=== PATIENT | female | born 1945 | race Caucasian/White ===

== ENCOUNTER → 2016-08-01 | Outpatient (CLI) | payer MEDICARE, OTHER ==
[~2016-08-01] MED LIST: ASPIR-LOW81 MG PO; CALCIUM + D 6001 TAB PO; CATAPRES PATCH; CECLOR 250MG250 MG PO; DIOVAN; GEMCOR600 MG PO; HYZAAR 25 MG-101 TAB PO; KLONOPIN 0.5MG0.5 MG PO; LEXAPRO; LOPRESSOR 550 MG/TAB PO; LORTAB 7.5/5001 TAB; MACROBID 1100 MG/CAP PO; PREGABALIN; TOPROL XL100 MG PO; UTI CRANBERRY480 MG PO; VITAMIN C500 MG PO
== END ==
LOC: MC.RAD 13:04
DX: Z12.31 Encounter for screening mammogram for malignant neoplasm of breast (principal)

== ENCOUNTER 2017-03-01 17:59 | Emergency (ER) | payer MEDICARE, OTHER ==
[~2017-03-01] VITALS: Ht 165.1 cm; Wt 75.5 kg
[2017-03-01 18:06] VITALS: TEMP 98.4
[2017-03-01 19:17] LABS: BASO % 0.4 % (0.0-2.0); EOS # 0.1 (0.0-0.7); EOS % 1.2 % (0-4.0); GRAN # 5.1 (1.4-6.5); GRAN % 62.7 % (42.2-75.2); HEMOGLOBIN 13.3 g/dl (12.5-16.0); LYMPH # 2.5 (1.2-3.4); LYMPH % 31.2 % (20.0-51.0); MEAN CELL VOLUME 92 fl (80.0-100.0); MEAN CORPUSCULAR HEMOGLOBIN 31 pg (27.0-31.0); MEAN CORPUSCULAR HGB CONC 33 g/dl (33.0-37.0); MEAN PLATELET VOLUME 10.8 fl (7.4-10.4); MONO # 0.4 (0.1-0.6); MONO % 4.3 % (1.7-9.3); PLATELET COUNT 177 K/mm3 (130-400); RED BLOOD COUNT 4.34 M/mm3 (4.10-5.30); WHITE BLOOD COUNT 8.1 K/mm3 (4.8-10.8)
[2017-03-01 19:25] LABS: ADJUSTED CALCIUM 9.1 mg/dL (8.4-10.2); ALANINE AMINOTRANSFERASE 34 U/L (9-52); ALBUMIN 4.8 gm/dL (3.5-5.0); ALKALINE PHOSPHATASE 96 U/L (50-136); ANION GAP 12 mmol/L (7-16); BILIRUBIN,TOTAL 0.6 mg/dL (0.0-1.0); BLOOD UREA NITROGEN 28 mg/dL (7-17); CALCIUM 9.7 mg/dL (8.4-10.2); CARBON DIOXIDE 23 mmol/L (22-30); CHLORIDE 107 mmol/L (98-107); CREATININE, serum 0.82 mg/dL (0.52-1.25); GLUCOSE 103 mg/dL (74-106); POTASSIUM 3.6 mmol/L (3.4-5.0); SODIUM 142 mmol/L (137-145); TOTAL PROTEIN 7.7 gm/dL (6.4-8.2)
[2017-03-01 19:36] LABS: TROPONIN-I < 0.012 ng/mL (0.000-0.034)
[2017-03-01 20:29] VITALS: BP 146/76; PULSE 64
== END 2017-03-01 20:29 | disposition home or self-care (01) ==
LOC: COL.ER 17:59
PROVIDERS: Emergency Medicine
DX: M25.512 Pain in left shoulder (principal); I10 Essential (primary) hypertension; W19.XXXA Unspecified fall, initial encounter

== ENCOUNTER → 2017-08-26 | Outpatient (CLI) | payer MEDICARE, OTHER | LOC: MC.RAD 11:28 | DX: Z12.31 Encounter for screening mammogram for malignant neoplasm of breast (principal) ==

== ENCOUNTER → 2018-09-29 | Outpatient (CLI) | payer MEDICARE, OTHER | LOC: MC.RAD 09-01 14:30 | DX: Z12.31 Encounter for screening mammogram for malignant neoplasm of breast (principal) ==

== ENCOUNTER → 2019-10-05 | Outpatient (CLI) | payer MEDICARE, OTHER | LOC: MC.RAD 13:47 | DX: Z12.31 Encounter for screening mammogram for malignant neoplasm of breast (principal) ==

== ENCOUNTER → 2020-07-27 | Outpatient (CLI) | payer MEDICARE, OTHER | LOC: COL.RAD 13:42 | DX: N28.89 Other specified disorders of kidney and ureter (principal); N30.20 Other chronic cystitis without hematuria ==

== ENCOUNTER → 2020-09-20 | Outpatient (CLI) | payer MEDICARE, OTHER | LOC: COL.RAD 09:39 | DX: M25.572 Pain in left ankle and joints of left foot (principal) | CPT/HCPCS: J3301; Q9967 ==

== ENCOUNTER → 2020-10-05 | Outpatient (CLI) | payer MEDICARE, OTHER | LOC: MC.RAD 07:54 | DX: Z12.31 Encounter for screening mammogram for malignant neoplasm of breast (principal) ==

== ENCOUNTER → 2021-07-17 | Outpatient (CLI) | payer MEDICARE, OTHER | LOC: COL.RAD 09:21 | DX: H93.A2 Pulsatile tinnitus, left ear (principal); E04.2 Nontoxic multinodular goiter | CPT/HCPCS: Q9967 ==

== ENCOUNTER 2023-06-26 08:56 | Day surgery (SDC) | payer MEDICARE, OTHER ==
[~2023-06-26] VITALS: Ht 160 cm; Wt 73.9 kg
[~2023-06-26 08:56] MED LIST changes: +ASPIRIN 81M81 MG/TA2 PO; +CALTRATE-600 W600 MG PO; +CEFACLOR250 MG PO; +DULCOLAX STOOL100 MG PO; +FOSAMAX 70MG TA70 MG PO; +LASIX 20MG TABL20 MG PO; +LR 1,000 ML IV SCH; +NORCO 325 MG-51 TAB PO; +TOPROL XL 50MG50 MG PO
[2023-06-26 09:29] VITALS: BP 150/59; PULSE 65; TEMP 97.4
[2023-06-26] MEDS ORDERED: COZAAR 25MG25 MG/TAB PO (10:02)
[2023-06-26] MEDS ORDERED: CALCIUM 600600 MG PO (10:03)
[2023-06-26] MEDS ORDERED: CEFACLOR250 MG PO (10:05)
[2023-06-26] MEDS ORDERED: LOPID 600M600 MG/TAB PO (10:06)
[2023-06-26] MEDS ORDERED: MULTI VITAMINS1 TAB PO (10:07)
[2023-06-26] MEDS ORDERED: PROBIOTIC-MAJOR PO (10:08)
[2023-06-26] MEDS ORDERED: VITAMIND3 5000 PO (10:10)
[2023-06-26] MEDS ORDERED: Ondansetron 4 MG/2 ML VIAL IV PRN ×2 (11:45→13:00)
[2023-06-26] MEDS ORDERED: Acetaminophen 325 MG TAB PO PRN (11:45)
[2023-06-26] MEDS ORDERED: Ibuprofen 600 MG TAB PO PRN (11:45)
[2023-06-26] MEDS ORDERED: Ondansetron 4 MG/2 ML VIAL ONE (12:09)
[2023-06-26] MEDS ORDERED: Lidocaine PF 2% (20 MG/ML) 5 ML VIAL ONE (12:09)
[2023-06-26] MEDS ORDERED: fentaNYL 50 MCG/ML 2 ML VIAL IV PRN (13:00)
[2023-06-26] MEDS ORDERED: HYDROmorphone 2 MG/1 ML VIAL IV PRN (13:00)
[2023-06-26] MEDS ORDERED: hydrALAZINE 20 MG/ML 1 ML VIAL IV PRN (13:00)
[2023-06-26 13:20] VITALS: BP 129/62; PULSE 56; TEMP 97
--- NOTE | 2023-06-26 13:20 | NUR ---
The patient arrived back to [facility] from the recovery room at this time. The patient appears alert and oriented and denies any pain or nausea at this time. The patient's dressing to her right neck appears clean, dry and intact. The patient agrees to try some coffee at this time. Post operative vital signs were started at this time. The patient's family is at her bedside at this time. The patient denies any further needs at this time.
[2023-06-26 13:35] VITALS: BP 142/47; PULSE 59
--- NOTE | 2023-06-26 13:35 | NUR ---
The patient appears to be tolerating the coffee well. She denies wanting anything further to eat or drink at this time. Vital signs appear stable.
--- NOTE | 2023-06-26 13:47 | NUR ---
The patient ambulated to the bathroom with the stand by assistance of one nurse and appeared to tolerate the activity well. The patient voided without difficulty. The patient voices a desire to be discharged home and her INT to her right hand was removed and she was instructed to get dressed.
[2023-06-26 13:50] VITALS: BP 135/60; PULSE 58
--- NOTE | 2023-06-26 14:04 | NUR ---
Discharge instructions were reviewed with the patient and her family at this time. They both verbalized understanding and have no questions for the nurse at this time. The patient is dressed and ready to be escorted out.
--- NOTE | 2023-06-26 14:14 | NUR ---
The patient was escorted out via wheelchair to a private vehicle by SANDRA Orozco. The patient's belongings and discharge paperwork were sent with her. The patient's family is present to drive her home.
[2023-06-26 14:28] VITALS: BP 134/61; PULSE 55; TEMP 98
== END 2023-06-26 14:14 | disposition home or self-care (01) ==
LOC: SDCO 08:56
DX: D03.4 Melanoma in situ of scalp and neck (principal); I10 Essential (primary) hypertension; Z79.899 Other long term (current) drug therapy
CPT/HCPCS: J0690; J2405; J2704; J7120